=== PATIENT | male | born 1980 | race Caucasian/White ===

== ENCOUNTER 2016-12-07 14:00 | Emergency (ER) | payer OTHER ==
[~2016-12-07] VITALS: Ht 172.7 cm; Wt 77.1 kg
[2016-12-07] MEDS ORDERED: BALSALAZIDE DI750 M1 PO (14:51)
[2016-12-07] MEDS ORDERED: CITALOPRAM HBR40 MG PO (14:51)
--- NOTE | 2016-12-07 15:19 | ED HAND/WRIST INJURY COMPLAINT ---
History of Present Illness General Chief Complaint: Laceration Procedure Stated Complaint: LEFT HAND LAC Source: patient Exam Limitations: no limitations Vital Signs & Intake/Output Vital Signs & Intake/Output Vital Signs Date Time Temp Pulse Resp B/P Pulse O2 O2 Flow FiO2 Ox Delivery Rate 12/07 1541 97.2 79 16 114/77 100 Room Air 12/07 1504 99 Room Air 12/07 1414 96.0 77 20 110/71 100 Room Air Allergies Coded Allergies: No Known Allergies (12/07/16) Reconcile Medications Balsalazide Disodium 750 MG CAPSULE 1 TAB PO TID GI (Reported) Citalopram Hydrobromide (Citalopram HBr) 40 MG TABLET 1 TAB PO DAILY MENTAL HEALTH (Reported) Triage Note: PT TO ED C/O LAC TO LEFT INDEX FINGER FROM UTILITY KNIFE. UNKNOWN LAST TETANUS SHOT. LAC NOTED, DRESSING APPLIED IN TRIAGE. Triage Nurses Notes Reviewed? yes Occurred: just prior to arrival Duration: minute(s):, constant Timing: recent history Injury Environment: home Severity: mild No Modifying Factors: none HPI: 36-year-old male comes into emergency room with laceration to left hand. Patient cut it with a box knife by accident. Last tetanus shot unknown. Denies any numbness or tingling. Full range of motion. Denies any pain. Denies any other injuries or any other associated symptoms. Past History Travel History Traveled to [place] past 21 day No Medical History Any Pertinent Medical History? see below for history Surgical History Surgical History: none Psychosocial History What is your primary language Macanese Tobacco Use: Never used ETOH Use: occasional use Illicit Drug Use: MEDICAL MARIJUANA Family History Hx Contributory? No Review of Systems Review of Systems Constitutional: Reports: no symptoms. EENTM: Reports: no symptoms. Respiratory: Reports: no symptoms. Cardiovascular: Reports: no symptoms. GI: Reports: no symptoms. Genitourinary: Reports: no symptoms. Musculoskeletal: Reports: no symptoms. Skin: Reports: no symptoms. Neurological/Psychological: Reports: no symptoms. Hematologic/Endocrine: Reports: no symptoms. Immunologic/Allergic: Reports: no symptoms. All Other Systems: Reviewed and Negative Physical Exam Physical Exam General Appearance: well developed/nourished, mild distress Head: atraumatic Eyes: Bilateral: normal appearance. Ears, Nose, Throat: normal ENT inspection, hearing grossly normal Neck: normal inspection Cardiovascular/Respiratory: no respiratory distress Back: normal inspection Hand Left: normal range of motion, 3 cm laceration, 4 cm laceration, Refill intact, sensation intact, full range of motion, no evidence of tendon laceration , Hand Right: normal inspection, normal range of motion Neurologic/Tendon: normal sensation, normal motor functions, normal tendon functions, responds to pain, no evidence tendon injury, no pulse deficit Skin: intact, normal color, warm/dry Lymphatic: no anterior cervical dipti Progress Differential Diagnosis: cellulitis, fracture, soft tissue foreign body, tendon laceration, Plan of Care: 12/07/2016 4:31:34 PM Patient tolerated procedure well. return in 10 days. Departure Departure Disposition: HOME OR SELF CARE Condition: Stable Clinical Impression Primary Impression: Laceration of left hand Referrals: DOMINIQUE BARRERA APRN (PCP/Family) Additional Instructions: Return in 10 days for suture removal. Watch for signs of infection such as redness or discharge chills. Return if any other concerns. Please note that there might be incidental findings in your evaluation that are unrelated to the current emergency department visit. Please notify your primary care doctor about this emergency department visit in order to obtain and review all of the testing performed so that these incidental findings can be monitored as needed. If you had an x-ray performed, please understand that some fractures may not be seen on the initial set of x-rays. If your symptoms persist you might need a repeat set of x-rays to check for such a fracture. If you had a laceration evaluated, please understand that foreign bodies such as glass or wood may not be visible to the naked eye or on plain x-rays. If the wound becomes red, swollen, increasingly more painful or if there is any drainage from the wound, please have it reevaluated by a physician for the possibility of a retained foreign body. Departure Forms: Customer Survey General Discharge Information Procedures Laceration/Wound Repair Progress: Laceration to left hand, 4 cm, 3 cm lacerations, Irrigated with saline, Betadine prep, 1% lidocaine, 4.0 NYLON, 6 sutures total, sterile dressing, bacitracin, patient tolerated procedure well, Performed by PA student with my supervision
[2016-12-07 15:41] VITALS: BP 114/77
== END 2016-12-07 15:57 ==
LOC: ERH 14:00
DX: S61.412A Laceration without foreign body of left hand, initial encounter (principal); W26.0XXA Contact with knife, initial encounter
CPT/HCPCS: 90471; 90714

== ENCOUNTER 2016-12-18 10:22 | Emergency (ER) | payer OTHER ==
[~2016-12-18] VITALS: Ht 172.7 cm; Wt 77.1 kg
[~2016-12-18 10:22] MED LIST: BALSALAZIDE DI750 M1 PO; CITALOPRAM HBR40 MG PO
[2016-12-18 10:27] VITALS: BP 122/75
--- NOTE | 2016-12-18 11:02 | ED ANIMAL BITE/WOUND CHECK ---
History of Present Illness General Chief Complaint: Suture Removal/Wound Recheck Stated Complaint: SUTUR REMOVAL Source: patient Exam Limitations: no limitations Vital Signs & Intake/Output Vital Signs & Intake/Output ED Intake and Output 12/19 0000 12/18 1200 Intake Total Output Total Balance Patient 170 lb Weight Allergies Coded Allergies: No Known Allergies (12/07/16) Reconcile Medications Balsalazide Disodium 750 MG CAPSULE 1 TAB PO TID GI (Reported) Citalopram Hydrobromide (Citalopram HBr) 40 MG TABLET 1 TAB PO DAILY MENTAL HEALTH (Reported) Triage Note: HERE FOR SUTURE REMOVAL FROM L HAND Triage Nurses Notes Reviewed? yes HPI: Patient had a left hand laceration sutured 11 days ago. He returns for suture removal. Patient states that the wound seems to be healing well with no signs of infection. Past History Travel History Traveled to [place] past 21 day No Medical History Any Pertinent Medical History? see below for history Neurological: NONE EENT: NONE Cardiovascular: NONE Respiratory: NONE Gastrointestinal: NONE Hepatic: NONE Renal: NONE Musculoskeletal: NONE Psychiatric: NONE Endocrine: NONE Blood Disorders: NONE Cancer(s): NONE CRISIS WORKER/Reproductive: NONE Tetanus Vaccine: 12/07/16 Surgical History Surgical History: none Psychosocial History What is your primary language Greenlandic Tobacco Use: Never used ETOH Use: denies use Illicit Drug Use: denies illicit drug use Family History Hx Contributory? No Review of Systems Review of Systems Constitutional: Reports: no symptoms. EENTM: Reports: no symptoms. Respiratory: Reports: no symptoms. Cardiovascular: Reports: no symptoms. GI: Reports: no symptoms. Genitourinary: Reports: no symptoms. Musculoskeletal: Reports: no symptoms. Skin: Reports: see HPI. Neurological/Psychological: Reports: no symptoms. Hematologic/Endocrine: Reports: no symptoms. Immunologic/Allergic: Reports: no symptoms. All Other Systems: Reviewed and Negative Physical Exam Physical Exam General Appearance: see below Comments: Gen.: Well-nourished, well-developed, no acute respiratory distress. Head: Normocephalic, atraumatic. Eyes: Normal inspection bilaterally Ears: Normal inspection bilaterally Nose: Normal inspection, nasal cannula in place Throat/mouth : Moist mucosa Neck: Supple, full range of motion, no goiter Heart: Regular rate and rhythm Lungs: Quiet respirations Back: Normal range of motion Extremities: Left hand: Sutured laceration without signs of infection or dehiscence, patient moves fingers well, sensation intact. Neurologic: Cranial nerves grossly intact, speech is clear Skin: warm and dry Psychiatric: Calm, cooperative, no apparent delusions or hallucinations Progress Differential Diagnosis: wound infection Plan of Care: Continue wound care Comments: Sutures removed without difficulty. No dehiscence of the wound. Steri-Strips placed. Departure Departure Disposition: HOME OR SELF CARE Condition: Stable Clinical Impression Primary Impression: Visit for suture removal Secondary Impressions: Laceration of left hand Qualifiers: Encounter type: initial encounter Foreign body presence: unspecified Qualified Code: S61.412A - Laceration without foreign body of left hand, initial encounter Referrals: DOMINIQUE BARRERA APRN (PCP/Family) Additional Instructions: Keep the Steri-Strips clean and dry for another few days before you begin to wet them down to encourage detachment. Return if any concerns or sudden worsening. Departure Forms: Customer Survey General Discharge Information
== END 2016-12-18 11:09 ==
LOC: ERH 10:22
DX: S61.412D Laceration without foreign body of left hand, subsequent encounter (principal)
CPT/HCPCS: 99281